=== PATIENT | female | born 1995 ===

== ENCOUNTER 2017-07-21 05:21 | Inpatient (IN) | payer MEDICAID ==
[2017-07-21 05:39] VITALS: BMI 37.7
--- NOTE | 2017-07-21 06:25 | OBADHP ---
Datetime: 07/21/2017 06:18 Admit Comment, IP Provider: atr 39weeks came her for schuled repeat c/s, no ctxs, vb ., lof+fm. obhx 2 x c/s pmh den med pnv all nkda psh c/s soc ee a/p 39weeks repeat c/s admit to l_d_ npo/ivf labs skin abxs antjhesia aware dr mccarty will take the consent Pelvic Type - PN: Adequate Extremities - PN: Normal Abdomen - PN: Normal Back - PN: Normal Breast - PN: Normal Lungs - PN: Normal Heart - PN: Normal Thyroid - PN: Normal Neurologic - PN: Normal HEENT - PN: Normal General - PN: Normal FHR - Baseline A Provider: 130 Contraction Comments Provider: occ IP Hx Assessment: The History has been Reviewed and is Current Vital Signs Provider: Reviewed; Within Normal Limits IP Chief Complaint: Scheduled Section NICHD Variability Prov Fetus A: Moderate 6-25bpm NICHD Accel Fetus A IP Provider: 15X15 FHR Category Provider Fetus A: Category I Genitourinary Exam: Normal DTRs - PN: Normal EGA AdmitDate IP: 39.6 IP Adm Impression: Term, intrauterine IP Admit Plan: Admit to unit; Initiate Section protocol
[2017-07-21 06:41] LABS: HEMOGLOBIN 9.6 g/dL (11.0-16.0); MEAN CELL VOLUME 74.8 fL (81.0-99.0); MEAN CORPUSCULAR HEMOGLOBIN 25.5 pg (27.0-31.0); MEAN CORPUSCULAR HGB CONC 34.1 g/dL (33.0-37.0); MEAN PLATELET VOLUME 8.1 fL (7.2-11.7); RBC 3.76 Mil/uL (3.80-5.20); RED CELL DISTRIBUTION WIDTH 17.8 % (11.5-14.5); WHITE BLOOD COUNT 12.2 K/uL (4.8-10.8)
[2017-07-21 06:53] LABS: SQUAMOUS EPITHIAL 1 /hpf (0-5); URINE BILIRUBIN NEGATIVE (NEGATIVE); URINE BLOOD NEGATIVE (NEGATIVE); URINE CLARITY Clear (Clear); URINE COLOR Colorless (YELLOW); URINE GLUCOSE (UA) NORMAL (Normal); URINE LEUKOCYTE ESTERASE NEG Leu/uL (Negative); URINE PROTEIN NEGATIVE (NEGATIVE); URINE UROBILINOGEN NORMAL mg/dL (0.2-1.0)
[2017-07-21 06:57] LABS: ALBUMIN 3.4 g/dL (3.5-5.0); BARBITURATES, UR NEGATIVE (NEGATIVE); BENZODIAZEPINES, UR NEGATIVE (NEGATIVE); CALCIUM 8.7 mg/dl (8.6-10.4); GFR AFRICAN-AMERICAN > 60; GFR NON-AFRICAN AMERICAN > 60; OPIATES, UR NEGATIVE (NEGATIVE); PHENCYCLIDINE, UR NEGATIVE (NEGATIVE)
[2017-07-21 06:59] LABS: ALT/SGPT < 6 U/L (9-52); AST/SGOT 26 U/L (14-36); BLOOD UREA NITROGEN 7 mg/dL (7-17)
[2017-07-21] MEDS ORDERED: Oxytocin 20 units in LR 2,000 ML IV ONE (07:19)
[2017-07-21] MEDS ORDERED: Sodium Citrate/Citric Acid 15 ml Sol ONE (07:19)
[2017-07-21] MEDS ORDERED: cefOXitin IV 2 gm in Saline 2 GM/50 ML BAG IVPB ONE (07:21)
--- NOTE | 2017-07-21 07:38 | OBHP ---
Datetime: 07/21/2017 06:18 IP Adm Impression: Term, intrauterine IP Admit Plan: Admit to unit; Initiate Section protocol Admit Comment, IP Provider: atr 39weeks came her for schuled repeat c/s, no ctxs, vb ., lof+fm. obhx 2 x c/s pmh den med pnv all nkda psh c/s soc ee a/p 39weeks repeat c/s admit to l_d_ npo/ivf labs skin abxs antjhesia aware dr mccarty will take the consent agree with aboe preiuvs cxs for schleued repat Pelvic Type - PN: Adequate Extremities - PN: Normal Abdomen - PN: Normal Back - PN: Normal Breast - PN: Normal Lungs - PN: Normal Heart - PN: Normal Thyroid - PN: Normal Neurologic - PN: Normal HEENT - PN: Normal General - PN: Normal FHR - Baseline A Provider: 130 Contraction Comments Provider: occ IP Hx Assessment: The History has been Reviewed and is Current EGA AdmitDate IP: 39.6 Vital Signs Provider: Reviewed; Within Normal Limits IP Indication for Induction: Not Applicable IP Chief Complaint: Scheduled Section NICHD Variability Prov Fetus A: Moderate 6-25bpm NICHD Accel Fetus A IP Provider: 15X15 FHR Category Provider Fetus A: Category I Genitourinary Exam: Normal DTRs - PN: Normal
[2017-07-21] MEDS ORDERED: cefOXitin 2 GM in Sodium Chloride 0.9% 100 ML IVPB ONE (07:49)
[2017-07-21] MEDS ORDERED: Morphine 1 mg/ml preservative-free Inj(Duramorph) ONE (08:19)
--- NOTE | 2017-07-21 10:23 | OBDS ---
DELIVERY PERSONNEL Delivery Doctor: Anna Enciso MD Scrub Nurse: Tona Peterson [employer] Social Worker: Richard Blackwell RN Anesthesiologist: MARYJANE MATERNAL INFORMATION Delivery Anesthesia: Spinal Estimated Blood Loss (ml): 700 Placenta Cultured: No Maternal Complications: Other Other Maternal Complications: No BTL done, see MD note RN Comments: infant had grunting and nasal flaring within 10 minutes of delivery. Josh WHARTON with inf ant to nursery Provider Comments: live female infant agprs 9,9 weight of 8bs 4 ounces unable to perform tubal ligatiion due ot adhesion on right tube with no clear delinatation, ebl 80 0 ml LABOR SUMMARY EDC: 07/27/2017 00:00 No. Babies in Womb: 1 Attempted: No Labor Anesthesia: None LABOR INFORMATION Reason for Induction: Not Applicable Oxytocin: N/A Group B Beta Strep: Not Done Antibiotics # of Doses: 1 Steroids Given: None Reason Steroids Not Administered: Not Applicable MEMBRANES Membranes Rupture Method: Artificial Rupture of Membranes: 07/21/2017 08:59 Length of Rupture (hrs): 0.02 Amniotic Fluid Color: Clear Amniotic Fluid Amount: Moderate STAGES OF LABOR Stage 3 hrs: 0 Stage 3 min: 1 CSECTION DELIVERY Primary Indication: Repeat Elective CSection Urgency: Elective CSection Incidence: Repeat Labor: N/A CSection Incision: Lower Uterine Transverse BABY A INFORMATION Infant Delivery Date/Time: 07/21/2017 09:00 Method of Delivery: Born in Route : No : N/A Forceps: N/A Vacuum Extraction: N/A Shoulder Dystocia : No SHOULDER DYSTOCIA BABY A Delivery Date/Time: 07/21/2017 09:00 PRESENTATION/POSITION BABY A Presentation: Cephalic Breech Presentation: N/A PLACENTA INFORMATION BABY A Placenta Delivery Time : 07/21/2017 09:01 Placenta Method of Delivery: Manual Removal Placenta Status: Delivered SCORES BABY A Heart Rate 1 min: >100 bpm Resp Effort 1 min: Good Cry Reflex Irritability 1 min: Cough or Sneeze or Pulls Away Muscle Tone 1 min: Active Motion Color 1 min: Body [place], Extremities Blue Resuscitation Effort 1 min: Tactile Stimulation SCORE 1 MIN: 9 Heart Rate 5 min: >100 bpm Resp Effort 5 min: Good Cry Reflex Irritability 5 min: Cough or Sneeze or Pulls Away Muscle Tone 5 min: Active Motion Color 5 min: Body [place], Extremities Blue Resuscitation Effort 5 min: N/A SCORE 5 MIN: 9 INFANT INFORMATION BABY A Gestational Age at Delivery: 39.1 Gestational Status: Term Infant Outcome : Liveborn Infant Condition : Stable Sex: Female IDENTIFICATION/MEDS BABY A ID Band Number: [id number] ID Band Location: Left Leg; Left Arm Sensor Applied: Yes Sensor Number: [id number] Sensor Location : Cord Clamp WEIGHT/LENGTH BABY A Birthweight (gms): 3730 Weight (lb): 8 Infant Weight (oz): 4 Infant Length Inches: 19.25 Length cms: 48.9 CORD INFORMATION BABY A No. Cord Vessels: 3 Nuchal Cord : N/A Cord pH Baby Venous: 7.29 Cord Blood Taken: Yes Suction: Mouth; Nose
--- NOTE | 2017-07-21 10:25 | PCM.SURG1 ---
Surgeon's Initial Post Op Note - Surgeon's Notes Surgeon: Amalia Enciso MD Washer And Crusher Tender: Tuan Javier MD Pre-Operative Diagnosis: Repeat Ceserean esction , multiparity desring permenatn tubal sterilzation Operative Findings: live female infant, agpras 9,9 normal appearin guteurs, damon adheisn of right fallopian tube not clearly idenitfy, normal lef tovary an dfllaopina tube, tubal ligation NOT Performed, pt and partner ifnormed of intraoperative findigns and will need to ocnitnue contrapction. Dr Toby Javier was surgical assistan and present fo rentire case and essential in gaiing entry, retracitn, epxousre, holidng bladder blade, helping to devlery , closing all layers Post-Operative Diagnosis: same as above Operation Performed: Repat low transverse cesaren section Specimen/Specimens Removed: placenta Estimated Blood Loss: EBL {In ML}: 700 Blood Products Given: N/A Drains Used: No Drains Post-Op Condition: Good Date of Surgery/Procedure: 07/21/17 Time of Surgery/Procedure: 09:00
[2017-07-21] MEDS ORDERED: Oxycodone/Acetaminophen 5/325 mg Tab PO PRN (10:31)
--- NOTE | 2017-07-21 21:44 | OP ---
PROCEDURE DATE: 07/21/2017 SURGEON: Amalia Enciso MD SLIDER ASSEMBLER: Tuan Javier MD PREOPERATIVE DIAGNOSES: Repeat section, multiparity, and desires permanent tubal sterilization. POSTOPERATIVE DIAGNOSES: Repeat section, multiparity, and desires permanent tubal sterilization. OPERATIVE FINDINGS: Live female , Apgars 9 and 9. Normal-appearing uterus, tubes and ovaries bilaterally with 8 pound 6 ounces. Dense adhesions of right fallopian tube and ovaries not clearly identified. Normal left fallopian tube and ovary. Tubal ligation not performed due this reason. The patient and partner informed of intraoperative findings. Will need to continue contraception or perform IUD versus versus other methods. Dr. Tuan Javier, the salesperson surgical appliances was present for the entire case, essential in gaining entry, retraction, exposure, holding the bladder while getting entry, delivering the baby, closing all layers. OPERATION PERFORMED: Repeat low transverse section. SPECIMENS REMOVED: Placenta. ESTIMATED BLOOD LOSS: 700 mL. BLOOD PRODUCTS: None. COMPLICATIONS: None. DESCRIPTION OF PROCEDURE: The patient was taken to the operating room where she was given spinal anesthesia. Once found to be adequate, she was then positioned on the operating table in dorsal supine position. The patient was then prepped and draped in the usual sterile fashion. A time-out confirmed correct patient and correct procedure. The patient was given preoperative prophylactic antibiotics. Pfannenstiel skin incision was made through the existing incision and carried down to the underlying fascia with a Bovie. The fascia was incised in the midline and the incision was extended laterally with Nicholas scissors. The inferior aspect of the fascial incision was grasped with Allis and Olvin clamps and underlying rectus muscle dissected off bluntly. Attention was then turned to the superior aspect of the incision in a similar fashion. It was grasped with Allis and Olvin clamps and the underlying rectus muscles were dissected off bluntly. The rectus muscle was then in the midline using two Allis clamps using scalpel and a clear space. The peritoneum was identified in clear space. The incision was extended laterally and superiorly, there was good visualization of the bladder. The lower end of the Hydes was then inserted. The lower uterine segment was incised in a transverse fashion. The uterine incision was extended laterally and bluntly. The amniotic membranes were then ruptured, and there was clear fluid noted. The surgeon's hand entered the uterine cavity. The 's head was delivered atraumatically. There was nuchal cord x1 was reduced followed by atraumatic delivery of the shoulders followed by delivery of the body. Both oral and nasal passages of the baby were bulb suctioned. The umbilical cord was clamped and cut. The baby handed off to awaiting agricultural research director. Cord blood and cord gases were collected and sent x2. The placenta was then delivered manually. The uterus was exteriorized and cleared off all clots and debris. The uterine incision was repaired with 0- Vicryl in running continuous locked fashion. A second layer of the same suture was used to close the uterus in a running imbricating manner. There was a normal left fallopian tube and ovary, and was going to perform the tubal ligation. However, there was no clear right fallopian tube identified. The round ligament and IP was identified. However, there was no clear fallopian tube and no fimbriated end was identified. The procedure was not performed. The patient was informed of the findings and needed that she would need to continue contraception. The uterus was then returned to the abdomen and paracolic gutters were cleared off all clots and debris. The uterine incision was noted to be hemostatic. The peritoneum was reapproximated and closed with 2-0 chromic in a running continuous fashion. The rectus was reapproximated and closed with 2-0 chromic in an interrupted manner. The fascia was reapproximated and closed with 0 Vicryl in a running continuous fashion. The subcutaneous layers were closed with 2-0 plain in interrupted manner. The skin was reapproximated for the lou. At the end of the procedure, all needle, sponge and instrument counts were noted correct x2. The patient tolerated the procedure well and was transferred to the recovery room in stable condition. Amalia Enciso MD
[2017-07-22] MEDS: Oxycodone/Acetaminophen 5/325 mg Tab PO PRN ×4 (07:49→22:13)
[2017-07-22 08:32] LABS: BASO % 0.5 % (0.0-2.0); EOS % 0.4 % (0.0-4.0); HEMOGLOBIN 7.7 g/dL (11.0-16.0); LYMPH # 1.5 K/uL (1.0-4.3); LYMPH % 14.7 % (20.0-40.0); MEAN CELL VOLUME 74.6 fL (81.0-99.0); MEAN CORPUSCULAR HEMOGLOBIN 25.4 pg (27.0-31.0); MEAN CORPUSCULAR HGB CONC 34.1 g/dL (33.0-37.0); MEAN PLATELET VOLUME 8.2 fL (7.2-11.7); MONO # 0.7 K/uL (0.0-0.8); NEUT # 7.7 K/uL (1.8-7.0); NEUT % 77.4 % (50.0-75.0); NRBC % 0.1 % (0.0-2.0); RBC 3.03 Mil/uL (3.80-5.20); RED CELL DISTRIBUTION WIDTH 18.5 % (11.5-14.5)
[2017-07-22 09:02] LABS: ALB/GLOB RATIO 0.9 (1.0-2.1); ALBUMIN 2.6 g/dL (3.5-5.0); ALT/SGPT 10 U/L (9-52); AST/SGOT 21 U/L (14-36); BLOOD UREA NITROGEN 3 mg/dL (7-17); CALCIUM 7.9 mg/dl (8.6-10.4); GFR AFRICAN-AMERICAN > 60; GFR NON-AFRICAN AMERICAN > 60
--- NOTE | 2017-07-22 09:24 | OBPPN ---
Datetime: 07/22/2017 09:18 PP Pain Prov: Within normal limits PP Nausea Prov: Denies PP Breasts Prov: Normal PP Heart Prov: Normal PP Lungs Prov: Normal PP Abdomen/Uterus Prov: Normal PP Lochia Prov: Normal PP Extremities Prov: Normal PP C/S Incision Prov: Normal PP Progress Prov: Normal PP Comments Phys Exam Prov: breast nonengorged fundus 2cm below umbil, nt PP Impression Prov: Normal progression PP Plan Prov: Continue present management PP Progress Note Prov: s: no c/o. tolerating reg diet. o: hgb 9.6 to7.7 i: pod1 cd doing well anemia w/ preexisting anemia p: iv iron d/c home on iron rout pp care advance diet Vital Signs Provider PP: Within Normal Limits
[2017-07-22] MEDS ORDERED: Bisacodyl 5mg EC Tab PO ONE (10:31)
[2017-07-22] MEDS: Ferric Sodium Gluconat Complex 62.5 mg/5 ml Vial IVPB SCH (10:38)
[2017-07-23] MEDS: Oxycodone/Acetaminophen 5/325 mg Tab PO PRN ×4 (02:03→20:52)
[2017-07-23] MEDS: Ferric Sodium Gluconat Complex 62.5 mg/5 ml Vial IVPB SCH (09:04)
[2017-07-23 16:29] VITALS: O2SAT 99
[2017-07-24] MEDS: Oxycodone/Acetaminophen 5/325 mg Tab PO PRN ×2 (01:13→08:09)
[2017-07-24] MEDS: Ferric Sodium Gluconat Complex 62.5 mg/5 ml Vial IVPB SCH (09:12)
--- NOTE | 2017-07-24 17:46 | OBDCSUM ---
Datetime: 07/24/2017 07:35 Discharged to, Provider: Home Follow up at, Provider: JIMMY Disch Instr Activity: Normal activity; May Shower Disch Instr Diet: Regular Discharge Diet restrict Prov: none Discharge Instructions, Provider: Routine instructions given Discharge Diagnosis, Provider: Term Delivered Discharge Time: 07/24/2017 11:30 Follow up in weeks, Provider: / Disch Referrals: None Contraception discussed, Prov: Yes Disch Activity Restrictions: No exercising; No sexual activity; Nothing in vagina - Kiester, wild christopher garcia Discharge Diagnosis Prov Other: Previous section Status post repeat section Chronic anemia Contraception counseling Rh negative; S/P rhogam Contraception after Delivery: Undecided
[2017-07-24 17:49] VITALS: BP 129/85; PULSE 99; RESP 18; TEMP 97.8
--- NOTE | 2017-07-24 17:59 | OBPPN ---
Datetime: 07/24/2017 17:44 PP Pain Prov: Within normal limits PP Nausea Prov: Denies PP Flatus Prov: Yes PP BM Prov: Yes PP Breasts Prov: Normal PP Heart Prov: Normal PP Lungs Prov: Normal PP Abdomen/Uterus Prov: Normal PP Lochia Prov: Normal PP Vulva/Perineum Prov: Not Done PP CVA Tenderness Prov: Normal PP Extremities Prov: Normal PP C/S Incision Prov: Normal PP Progress Prov: Normal PP Comments Phys Exam Prov: Breasts: no cracked nipples Abdomen: Mildly obese. Soft. Non distended. (+) BS. Incision with lou - clean, dry and intact. Fundus firm, mobile, minimally tender, 2 FB below umbilicus. Minimal lochia rubra. Extremities: no clubbing, cyanosisi or edema All other systems reviewed and are negative PP Impression Prov: Normal progression PP Plan Prov: Discharge PP Progress Note Prov: Patient was seen and evaluated at approximately 1025 hours: received in bed, room 460. Warne and FOB present. Patient is breast- and bottlefeeding. Reports mild incisional pain . Denies nausea, vomiting; (+) ambulating and voiding without difficulty. Denies headaches, dizziness , lightheadedness, chest pain or shortness of breath. Ready to go home P.E.: as above. Mildy obese, in NAD. Awake, alert, oriented to time, person and place. Pleasant a nd cooperative Assessmejt: POD#3, 22 y.o. P3, S/P C/S #3. Afebrile, vital signs stable. Rh (-); Rh(+); pat ient is S/P Rhogam. Desired permanent sterilization; "they couldn't find the papers" Brief discussion of contraception options: most intereested in IUD and/or depoProvera. To discuss fully at post partu m visit. Anemia noted; patient is asymptomatic and otherwise hemodynamically stable. Patient is clini flower stable. Plan: 1) Discharge home 2) See full discharge instructions Vital Signs Provider PP: Reviewed; Within Normal Limits
== END 2017-07-24 13:49 | disposition home or self-care (01) | DRG 371 ==
LOC: C.4D 05:21 → C.4M 11:58
PROVIDERS: ADMIT Obstetrics & Gynecology; ATTEND Obstetrics & Gynecology
PROC: 10D00Z1 Extraction of Products of Conception, Low, Open Approach (ICD-10-PCS; principal; 2017-07-21)
DX: O99.02 Anemia complicating childbirth (principal); O34.219 Maternal care for unspecified type scar from previous cesarean delivery; D64.89 Other specified anemias; O99.214 Obesity complicating childbirth; N73.6 Female pelvic peritoneal adhesions (postinfective); O99.89 Other specified diseases and conditions complicating pregnancy, childbirth and the puerperium; O36.0930 Maternal care for other rhesus isoimmunization, third trimester, not applicable or unspecified; Z68.37 Body mass index [BMI] 37.0-37.9, adult; Z37.0 Single live birth; Z3A.39 39 weeks gestation of pregnancy; Z30.09 Encounter for other general counseling and advice on contraception

== ENCOUNTER 2018-06-11 04:16 | Emergency (ER) | payer MEDICAID ==
[2018-06-11 04:17] VITALS: BMI 37.7
[2018-06-11 05:39] LABS: BASO # 0.1 K/uL (0.0-0.2); BASO % 0.6 % (0.0-2.0); EOS # 0.1 K/uL (0.0-0.7); EOS % 0.8 % (0.0-4.0); HEMOGLOBIN 11.4 g/dL (11.0-16.0); LYMPH # 2.1 K/uL (1.0-4.3); LYMPH % 21.6 % (20.0-40.0); MEAN CELL VOLUME 78.3 fL (81.0-99.0); MEAN CORPUSCULAR HEMOGLOBIN 26.7 pg (27.0-31.0); MEAN CORPUSCULAR HGB CONC 34.1 g/dL (33.0-37.0); MEAN PLATELET VOLUME 8.7 fL (7.2-11.7); MONO % 10.7 % (0.0-10.0); NEUT # 6.4 K/uL (1.8-7.0); NEUT % 66.3 % (50.0-75.0); RBC 4.25 Mil/uL (3.80-5.20); RED CELL DISTRIBUTION WIDTH 14.5 % (11.5-14.5); WHITE BLOOD COUNT 9.6 K/uL (4.8-10.8)
[2018-06-11 05:55] LABS: BLOOD UREA NITROGEN 7 mg/dL (7-17); CALCIUM 8.9 mg/dl (8.6-10.4); GFR NON-AFRICAN AMERICAN > 60
[2018-06-11 06:03] LABS: URINE BILIRUBIN NEGATIVE (NEGATIVE); URINE BLOOD 3+ (NEGATIVE); URINE CLARITY Hazy (Clear); URINE COLOR Red (YELLOW); URINE GLUCOSE (UA) NORMAL (Normal); URINE LEUKOCYTE ESTERASE NEG Leu/uL (Negative); URINE PROTEIN 2+ mg/dL (NEGATIVE); URINE UROBILINOGEN NORMAL mg/dL (0.2-1.0); WBC CLUMPS MANY /hpf
[2018-06-11 06:04] LABS: ALB/GLOB RATIO 1.1 (1.0-2.1); ALBUMIN 4.1 g/dL (3.5-5.0); ALT/SGPT 21 U/L (9-52); AST/SGOT 49 U/L (14-36)
--- NOTE | 2018-06-11 06:21 | C.PDOC ---
History Of Present Illness 23 year old female presents to the emergency department with complaints of right pelvic pain for the last 4 days. Patient states that she went to [facility] [place] where she had an US done which showed that a "cyst exploded". Patient wasn't given anything for the pain at that time, and was told the follow up with her OB who was consequently unavailable. Patient states that she started bleeding at 11PM tonight, and used 6 pads in 5 hours. Patient reports dizziness but denies syncope, chest pain, shortness of breath, urinary symptoms. Patient states her LMP was 05-13-18. Time Seen by Provider: 06/11/18 04:27 Chief Complaint (Nursing): Female Genitourinary History Per: Patient History/Exam Limitations: no limitations Onset/Duration Of Symptoms: Days (4) Current Symptoms Are (Timing): Still Present Quality Of Discomfort: "Pain" Associated Symptoms: Other (dizziness, pelvic pain, vaginal bleeding). denies: Fever, Chills, Nausea, Vomiting, Diarrhea, Urinary Symptoms Abnormal Vaginal Bleeding: Yes Last Menstral Period: 05-13-18 Past Medical History Reviewed: Historical Data, Nursing Documentation, Vital Signs Vital Signs: Last Vital Signs Temp 99.1 F 06/11/18 04:29 Pulse 89 06/11/18 04:29 Resp 16 06/11/18 04:29 BP 145/82 06/11/18 04:29 Pulse Ox 100 06/11/18 04:29 - Medical History PMH: No Chronic Diseases Denies: Depression, Diabetes, HTN Surgical History: No Surg Hx - [facility] Procedures EXTRACTION OF POC, LOW CERVICAL, OPEN APPROACH (07/21/17) LOW CERVICAL (08/17/13) Family History: States: No Known Family Hx - Social History Hx Tobacco Use: No Hx Alcohol Use: Yes Hx Substance Use: Yes (marijiuana use as of 12/31 UDS sent) - Immunization History Hx Tetanus Toxoid Vaccination: No Hx Influenza Vaccination: No Hx Pneumococcal Vaccination: No Review Of Systems Except As Marked, All Systems Reviewed And Found Negative. Constitutional: Negative for: Fever, Chills Cardiovascular: Negative for: Chest Pain, Palpitations Respiratory: Negative for: Cough, Shortness of Breath Gastrointestinal: Negative for: Nausea, Vomiting, Abdominal Pain Genitourinary: Positive for: Vaginal Bleeding, Pelvic Pain Neurological: Positive for: Dizziness. Negative for: Weakness, Numbness Physical Exam - Physical Exam Appears: Non-toxic, No Acute Distress Skin: Normal Color, Warm, Dry Head: Atraumatic, Normacephalic Eye(s): bilateral: Normal Inspection, PERRL, EOMI Nose: Normal Oral Mucosa: Moist Neck: Normal, Supple Chest: Symmetrical, No Tenderness Cardiovascular: Rhythm Regular, No Murmur Respiratory: Normal Breath Sounds, No Rales, No Rhonchi, No Wheezing Gastrointestinal/Abdominal: Soft, Tenderness (to RLQ), No Guarding, No Rebound Pelvic: Vaginal Bleeding (dark red blood in vaginal vault, few clots), No Cervical Motion Tenderness, Other (oss closed) Extremity: Normal ROM Neurological/Psych: Oriented x3, Normal Speech, Normal Cognition ED Course And Treatment - Laboratory Results Result Diagrams: 06/11/18 05:32 06/11/18 05:32 Lab Results: Total Bilirubin 0.7 mg/dL (0.2-1.3) 06/11/18 05:32 AST 49 U/L (14-36) H D 06/11/18 05:32 ALT 21 U/L (9-52) 06/11/18 05:32 Alkaline Phosphatase 71 U/L (38-126) 06/11/18 05:32 Total Protein 8.0 g/dL (6.3-8.3) 06/11/18 05:32 Albumin 4.1 g/dL (3.5-5.0) 06/11/18 05:32 Globulin 3.9 gm/dL (2.2-3.9) 06/11/18 05:32 Albumin/Globulin Ratio 1.1 (1.0-2.1) 06/11/18 05:32 Urine Color Red (YELLOW) 06/11/18 05:32 Urine Clarity Hazy (Clear) 06/11/18 05:32 Urine pH 6.0 (5.0-8.0) 06/11/18 05:32 Ur Specific [place] 1.017 (1.003-1.030) 06/11/18 05:32 Urine Protein 2+ mg/dL (NEGATIVE) H 06/11/18 05:32 Urine Glucose (UA) Normal mg/dL (Normal) 06/11/18 05:32 Urine Ketones Negative mg/dL (NEGATIVE) 06/11/18 05:32 Urine Blood 3+ (NEGATIVE) H 06/11/18 05:32 Urine Nitrate Negative (NEGATIVE) 06/11/18 05:32 Urine Bilirubin Negative (NEGATIVE) 06/11/18 05:32 Urine Urobilinogen Normal mg/dL (0.2-1.0) 06/11/18 05:32 Ur Leukocyte Esterase Neg Tasha/uL (Negative) 06/11/18 05:32 Urine WBC (Auto) 540 /hpf (0-5) H 06/11/18 05:32 Urine RBC (Auto) 2472 /hpf (0-3) H 06/11/18 05:32 Urine WBC Clumps (Auto) Many /hpf (NONE) H 06/11/18 05:32 Urine Yeast (Budding) Many /hpf (NEGATIVE) H 06/11/18 05:32 Beta HCG, Quant < 2.39 mIU/ML 06/11/18 05:32 O2 Sat by Pulse Oximetry: 100 (RA) Pulse Ox Interpretation: Normal Medical Decision Making Medical Decision Making: Plan: Blood Bank Chemistry Bloodwork Toradol 30mg IM Urinalysis US Transvag Disposition Counseled Patient/Family Regarding: Studies Performed, Diagnosis - Disposition Disposition Time: 07:00 Condition: STABLE Forms: [facility] (Mosotho) - POA Present On Arrival: None - Clinical Impression Clinical Impression: Pelvic pain, Vaginal bleeding - Scribe Statement The provider has reviewed the documentation as recorded by the Scribe (Jorge Cooper) Provider Attestation: All medical record entries made by the Scribe were at my direction and personally dictated by me. I have reviewed the chart and agree that the record accurately reflects my personal performance of the history, physical exam, medical decision making, and the department course for this patient. I have also personally directed, reviewed, and agree with the discharge instructions and disposition. Physician Patient Turnover Patient Signed Over To: Viola Alvarado Handoff Comments: pending u/s results and dispo
[2018-06-11 07:42] VITALS: O2SAT 99
[2018-06-11 09:08] VITALS: BP 118/75; PULSE 74; RESP 18; TEMP 97.6
--- NOTE | 2018-06-11 13:47 | US ---
Date of service: 06/11/2018 HISTORY: vaginal bleeding/abd pain COMPARISON: None available. TECHNIQUE: Transabdominal and transvaginal FINDINGS: UTERUS: Measures 9.3 x 4.6 x 4.8 cm. Normal in size and appearance. No fibroid or other mass lesion seen. ENDOMETRIUM: Measures 6 mm in diameter. Unremarkable. CERVIX: No cervical abnormality identified. RIGHT OVARY: Measures 5.1 x 3.9 x 5.1 cm. No solid mass. Several complex cysts are identified. There is a septated minimally complicated cyst measuring 2.5 x 1.9 x 1.8 cm. There is a cyst with heterogeneous low level internal echoes measuring 2.3 x 1.4 cm. There is a cyst with homogeneous mid level internal echoes, 2.8 x 2.4 x 3.4 cm. Differential diagnosis includes hemorrhagic cyst or endometrioma for this latter cyst. LEFT OVARY: Measures 8.2 x 4.8 x 5.6 cm. No solid mass. Normal flow. Complex cysts. There is a complex cyst with mid level internal echoes and a fluid/fluid level, measuring 7.0 by 6.3 x 6.1 cm. There is a complex cyst, 2.6 x 2.9 x 2.7 cm and a complex cyst measuring 2.8 x 1.5 x 2.2 cm., FREE FLUID: No significant free fluid noted. OTHER FINDINGS: None. IMPRESSION: Multiple bilateral complex cysts. There is a dominant complex cyst in the left ovary with mid level echoes and a fluid/fluid level measuring 7.0 cm. A similar smaller cyst is seen in the right ovary, measuring 3.4 cm. Endometriomas versus hemorrhagic cysts. Follow-up with transvaginal pelvic ultrasound examination is advised in approximately 8 weeks. The preliminary findings for this examination were reported by [facility] at 7:55 a.m. on 06/11/2018. There is concurrence of this report with the preliminary findings.
== END 2018-06-11 09:09 | disposition home or self-care (01) ==
LOC: C.ER 04:16
DX: N93.9 Abnormal uterine and vaginal bleeding, unspecified (principal); R10.2 Pelvic and perineal pain
CPT/HCPCS: 76830; 76856; 80053; 81001; 81025; 84702; 85025; 86850; 86900; 96374; 99285; J1885